=== PATIENT | male | born 2000 | race Two or more races ===

== ENCOUNTER 2019-06-19 16:36 | Emergency (ER) | payer OTHER ==
[~2019-06-19] VITALS: Ht 190.5 cm; Wt 108.9 kg
[2019-06-19] MEDS ORDERED: LIDOCAINE /MPF 1% VIAL 5 ML VIAL ONE (17:19)
[2019-06-19] MEDS ORDERED: CEPHALEXIN MONOHYDRATE 500 MG CAPSULE PO ONE ×2 (17:30→17:32)
--- NOTE | 2019-06-19 17:37 | NUR ---
given keflex 500 mg po now i and d pending of tow
--- NOTE | 2019-06-19 17:37 | NUR ---
pt rec'd to er c/o left big toe cellutis had an ingrown nail .
[2019-06-19] MEDS ORDERED: LIDOCAINE /MPF 1% VIAL 5 ML VIAL IJ ONE (18:00)
--- NOTE | 2019-06-19 18:05 | NUR ---
PT TOLERATED PROCEDURE WELL VSS
[2019-06-19 18:15] VITALS: BP 119/80
--- NOTE | 2019-06-19 18:15 | NUR ---
PT. VERBALIZED UNDERSTANDING OF AFTERCARE INSTRUCTIONS.Patient discharged to home in stable condition. Written and verbal after care instructions given. Patient verbalizes understanding of instruction.
== END 2019-06-19 18:21 | disposition home or self-care (01) ==
LOC: ER 16:36
DX: L60.0 Ingrowing nail (principal)
CPT/HCPCS: 11730; 99284; A6403; J3490